=== PATIENT | male | born 2000 | race Caucasian/White ===

== ENCOUNTER 2024-02-04 11:56 | Emergency (ER) | payer BC ==
[~2024-02-04] VITALS: Ht 162.5 cm; Wt 54.4 kg
[2024-02-04] MEDS ORDERED: SODIUM CHLORIDE 0.9% 1,000 ML IV ONE (12:05)
[2024-02-04] MEDS ORDERED: Meclizine Hydrochloride 25 MG TAB PO ONE (12:05)
[2024-02-04 12:22] LABS: BASO % 0.3 % (0.0-1.0); EOS % 0.1 % (1.0-4.0); HEMATOCRIT 43.3 % (42.0-52.0); LYMPH # 1.2 10*3/uL (1.3-4.4); LYMPH % 8.6 % (27.0-41.0); MEAN CELL VOLUME 84.1 fl (80.0-94.0); MEAN CORPUSCULAR HGB 28.2 pg (27.0-31.0); MEAN CORPUSCULAR HGB CONC 33.5 g/dl (33.0-37.0); MEAN PLATELET VOLUME 9.8 fl (9.6-12.3); MONO # 0.4 10*3/uL (0.1-1.0); MONO % 3.2 % (3.0-9.0); NEUT % 87.5 % (47.0-73.0); PLATELET COUNT AUTOMATED 183 10*3/uL (130-400); RED BLOOD COUNT 5.15 10*6/uL (4.50-5.90); RED CELL DISTRI WIDTH 12.5 % (0-14.5); WHITE BLOOD COUNT 13.7 10*3/uL (4.8-10.8)
[2024-02-04] MEDS ORDERED: FLUDROCORTISON0.1 MG PO (12:49)
[2024-02-04 12:50] LABS: BUN 15 mg/dl (9-23); CHLORIDE 102 mmol/L (98-107); POTASSIUM 3.6 mmol/L (3.4-5.1)
[2024-02-04] MEDS ORDERED: LEVOTHYROXINE75 MCG PO (12:50)
[2024-02-04] MEDS ORDERED: PREDNISONE5 MG PO (12:50)
== END 2024-02-04 13:46 | disposition home or self-care (01) ==
LOC: ED 11:56
PROVIDERS: Emergency Medicine
DX: R42 Dizziness and giddiness (principal)